=== PATIENT | female | born 1955 | race Caucasian/White ===

== ENCOUNTER 2017-09-21 08:57 | Outpatient (CLI) | payer BC ==
--- NOTE | 2017-09-21 12:20 | MRI ---
MRI BRAIN WITH AND WITHOUT CONTRAST: HISTORY: Neck pain going into both shoulders. Occasional dizziness and disturbed vision. COMPARISON: None. TECHNIQUE: Multiplanar, multisequence MR images were obtained of the brain with and without IV contrast. FINDINGS: The brain demonstrates normal signal intensity on all obtained sequences. No restricted diffusion is seen to suggest an acute infarction. No abnormal enhancement is appreciated. There is no evidence of hydrocephalus, intracranial hemorrhage, or extraaxial fluid collection. The expected flow voids are present. The corpus callosum, pituitary, and craniocervical junction are unr emarkable. The calvarium and overlying soft tissues are unremarkable. There is a mucus retention cyst in the le ft maxillary sinus. There is some fluid in the left mastoid air cells. IMPRESSION: No evidence of acute intracranial abnormality. POS: ESMER
--- NOTE | 2017-09-21 12:25 | MRI ---
MRI CERVICAL SPINE NONCONTRAST: HISTORY: Neck and arm pain. Radiculopathy. FINDINGS: There is desiccation of all of the intervertebral disks. C2-3, C3-4: Mild osteophytosis is present. The central canal and neural foramen are patent. C4-5: There is disk space narrowing, minimal degenerative spondylolisthesis, and discogenic end plat e changes within the bone marrow. Mild posterior osteophyte/disk complex slightly effaces the left v entral aspect of the thecal sac but does not affect the spinal cord. The neural foramen are patent. C5-6: There is disk space narrowing. Posterior osteophyte/disk complex slightly effaces the ventral aspect of the thecal sac but does not affect the spinal cord. Uncovertebral and facet hypertrophy r esult in severe right and mild left foraminal stenosis. 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 Mild oste ophytosis is present. The central canal and neural foramen are patent. C7-T1: The central canal and neural foramen are patent. 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 Clinical correlation regarding the right C6 dermatome is required. POS: AKUA
[2017-09-21] MEDS ORDERED: Gadobenate Dimeglumine 529 MG/1 ML (20ML VIAL) ONE (12:48)
== END 2017-09-21 08:58 | disposition home or self-care (01) ==
LOC: TBSIIMAG 08:57
PROVIDERS: ATTEND Neurological Surgery
DX: M47.812 Spondylosis without myelopathy or radiculopathy, cervical region (principal); R51 Headache; M99.81 Other biomechanical lesions of cervical region
CPT/HCPCS: 70553; 72141

== ENCOUNTER 2019-04-10 09:46 | Outpatient (CLI) | payer BC ==
--- NOTE | 2019-04-10 11:43 | MMO ---
Bilateral MAMMO Bilat Screen [facility]. CLINICAL HISTORY: Patient is 64 years old and is seen for screening. The patient has the following family history of breast cancer: mother; 3 maternal aunts and 3 cousin females. The patient has no personal history of cancer. VIEWS: The views performed were: bilateral craniocaudal with tomosynthesis; bilateral mediolateral oblique with tomosynthesis; and bilateral exaggerated craniocaudal. FILMS COMPARED: The present examination has been compared to a prior imaging study performed at [facility] on 04/06/2018. MAMMOGRAM FINDINGS: The breasts are heterogeneously dense, which could obscure a lesion on mammography. There are no suspicious masses, suspicious calcifications, or new areas of architectural distortion. IMPRESSION: THERE IS NO MAMMOGRAPHIC EVIDENCE OF MALIGNANCY. A ROUTINE FOLLOW-UP MAMMOGRAM IN 1 YEAR IS RECOMMENDED. THE RESULTS OF THIS EXAM WERE SENT TO THE PATIENT. ACR BI-RADS Category 1 - Negative MAMMOGRAPHY NOTE: 1. A negative mammogram report should not delay a biopsy if a dominant of clinically suspicious mass is present. 2. Approximately 10% to 15% of breast cancers are not detected by mammography. 3. Adenosis and dense breasts may obscure an underlying neoplasm. Reported by: AFTAB LE MD Electonically Signed: [id number]
--- NOTE | 2019-04-10 12:47 | BD ---
Exam: DEXA Bone Density 04/10/19 HISTORY: Postmenopausal screening for osteoporosis. FINDINGS: Lumbar Spine: BMD (g/cm2) T-SCORE Z-SCORE L1 0.823 -1.5 0.0 L2 0.870 -1.4 0.2 L3 0.944 -1.3 0.5 L4 0.845 -2.0 -0.1 L1-L4 0.872 -1.6 0.1 Femoral Neck: 0.727 -1.1 0.4 Total Femur: 0.785 -1.3 -0.1 There has been interval reduction of 8% of the BMD of the lumbar spine and a reduction of 4.8% of the BMD of the proximal femur since 04/07/17. The ten year fracture risk for a major osteoporotic fracture is 14% and for a hip fracture is 0.6%. Impression:Osteopenia. POS: OFF
== END 2019-04-10 09:47 | disposition home or self-care (01) ==
LOC: BICMAMMO 09:46
PROVIDERS: ATTEND Family Medicine
DX: Z12.31 Encounter for screening mammogram for malignant neoplasm of breast (principal); Z13.820 Encounter for screening for osteoporosis; M85.89 Other specified disorders of bone density and structure, multiple sites; Z80.3 Family history of malignant neoplasm of breast
CPT/HCPCS: 77063; 77067; 77080

== ENCOUNTER 2022-04-29 08:15 | Outpatient (CLI) | payer MEDICARE | END 2022-04-29 08:16 | disposition home or self-care (01) | LOC: BICMAMMO 08:15 | PROVIDERS: ATTEND Family Medicine | DX: Z12.31 Encounter for screening mammogram for malignant neoplasm of breast (principal); M85.89 Other specified disorders of bone density and structure, multiple sites; M54.9 Dorsalgia, unspecified; M40.209 Unspecified kyphosis, site unspecified; Z80.3 Family history of malignant neoplasm of breast | CPT/HCPCS: 77063; 77067; 77080 ==

== ENCOUNTER 2023-05-11 08:13 | Outpatient (CLI) | payer MEDICARE | END 2023-05-11 08:14 | disposition home or self-care (01) | LOC: BICMAMMO 08:13 | PROVIDERS: ATTEND Family Medicine | DX: Z12.31 Encounter for screening mammogram for malignant neoplasm of breast (principal); Z80.3 Family history of malignant neoplasm of breast | CPT/HCPCS: 77063; 77067 ==